=== PATIENT | female | born 1985 | race American Indian/Alaskan Native ===

== ENCOUNTER 2017-12-04 13:01 | Emergency (ER) | payer OTHER ==
[2017-12-04 15:38] VITALS: BP 142/93
[2017-12-04] MEDS ORDERED: LIDOCAINE VISCOUS 2% PO ONE (21:42)
[2017-12-04] MEDS ORDERED: XYLOCAINE 1% MPF 5 mL INFILTRATI ONE (21:42)
[2017-12-04] MEDS ORDERED: ROCEPHIN IM ONE (21:42)
--- NOTE | 2017-12-04 22:10 | Emergency Department Report ---
ED ENT HPI - General Chief complaint: Sore Throat Stated complaint: SORETHROAT, FEVER Time Seen by Provider: 12/04/17 21:41 Source: patient Mode of arrival: Ambulatory Limitations: No Limitations - History of Present Illness Initial comments: This is a 32-year-old female nontoxic, well nourished in appearance, no acute signs of distress presents to the ED with c/o of sore throat x4 days. He stated yesterday she developed subjective fever and hoarseness. Patient currently denies any fever. She just felt hot yesterday. Patient denied any chest pain, shortness of breath, fever, chills, nausea, drooling, difficulty swallowing, vomiting, headache, stiff neck, numbness tingling. Patient denies any allergies. Past medical history is hypertension. MD complaint: sore throat -: days(s) (4) Location: throat Severity: mild Severity scale (0 -10): 8 Quality: aching Consistency: constant Improves with: none Worsens with: swallowing Associated Symptoms: pain with swallowing. denies: fever, cough, gum swelling, toothache, sore throat, tinnitus, hearing loss, discharge from ear, rhinorrhea - Related Data Previous Rx's Medication Instructions Recorded Last Taken Type Amoxicillin/K Clav Tab [Augmentin 1 tab PO Q12HR #20 tab 12/04/17 Unknown Rx 875 mg] Nystas/Diphen/Xyl Visc/Mylanta 30 ml MM Q4H PRN 10 Days ml 12/04/17 Unknown Rx [Magic Mouthwash] Allergies Allergy/AdvReac Type Severity Reaction Status Date / Time No Known Allergies Allergy Unverified 12/04/17 15:34 ED Dental HPI - General Chief complaint: Sore Throat Stated complaint: SORETHROAT, FEVER Time Seen by Provider: 12/04/17 21:41 Source: patient Mode of arrival: Ambulatory Limitations: No Limitations - Related Data Previous Rx's Medication Instructions Recorded Last Taken Type Amoxicillin/K Clav Tab [Augmentin 1 tab PO Q12HR #20 tab 12/04/17 Unknown Rx 875 mg] Nystas/Diphen/Xyl Visc/Mylanta 30 ml MM Q4H PRN 10 Days ml 12/04/17 Unknown Rx [Magic Mouthwash] Allergies Allergy/AdvReac Type Severity Reaction Status Date / Time No Known Allergies Allergy Unverified 12/04/17 15:34 ED Review of Systems ROS: Stated complaint: SORETHROAT, FEVER Other details as noted in HPI Constitutional: denies: chills, fever Eyes: denies: eye pain, eye discharge, vision change ENT: throat pain. denies: ear pain Respiratory: denies: cough, shortness of breath, wheezing Cardiovascular: denies: chest pain, palpitations Endocrine: no symptoms reported Gastrointestinal: denies: abdominal pain, nausea, diarrhea Genitourinary: denies: urgency, dysuria, discharge Musculoskeletal: denies: back pain, joint swelling, arthralgia Skin: denies: rash, lesions Neurological: denies: headache, weakness, paresthesias Psychiatric: denies: anxiety, depression Hematological/Lymphatic: denies: easy bleeding, easy bruising ED Past Medical Hx - Past Medical History Hx Hypertension: Yes Additional medical history: heart mumur - Surgical History Past Surgical History?: No - Medications Home Medications: Home Medications Medication Instructions Recorded Confirmed Last Taken Type Amoxicillin/K Clav Tab [Augmentin 1 tab PO Q12HR #20 tab 12/04/17 Unknown Rx 875 mg] Nystas/Diphen/Xyl Visc/Mylanta 30 ml MM Q4H PRN 10 Days ml 12/04/17 Unknown Rx [Magic Mouthwash] ED Physical Exam - General Limitations: No Limitations General appearance: alert, in no apparent distress - Head Head exam: Present: atraumatic, normocephalic, normal inspection - Eye Eye exam: Present: normal appearance, PERRL, EOMI. Absent: scleral icterus, conjunctival injection, nystagmus, periorbital swelling, periorbital tenderness Pupils: Present: normal accommodation - ENT ENT exam: Present: mucous membranes moist, TM's normal bilaterally, normal external ear exam - Expanded ENT Exam Expanded Ear exam: Present: normal external inspection Mouth exam: Present: normal external inspection, tongue normal. Absent: drooling, trismus, muffled voice, tongue elevation, laceration Teeth exam: Present: normal inspection Throat exam: Positive: tonsillar erythema, tonsillomegaly (2+), tonsillar exudate, other (Uvula midline. No abscess or swelling noted. ). Negative: R peritonsillar mass, L peritonsillar mass - Neck Neck exam: Present: normal inspection, full ROM. Absent: tenderness, meningismus, lymphadenopathy, thyromegaly - Respiratory Respiratory exam: Present: normal lung sounds bilaterally. Absent: respiratory distress, wheezes, rales, rhonchi, stridor, chest wall tenderness, accessory muscle use, decreased breath sounds, prolonged expiratory - Cardiovascular Cardiovascular Exam: Present: regular rate, normal rhythm, normal heart sounds. Absent: bradycardia, tachycardia, irregular rhythm, systolic murmur, diastolic murmur, rubs, gallop - GI/Abdominal GI/Abdominal exam: Present: soft, normal bowel sounds. Absent: distended, tenderness, guarding, rebound, rigid, diminished bowel sounds - Rectal Rectal exam: Present: deferred - Extremities Exam Extremities exam: Present: normal inspection, full ROM, normal capillary refill. Absent: tenderness, pedal edema, joint swelling, calf tenderness - Back Exam Back exam: Present: normal inspection, full ROM. Absent: tenderness, CVA tenderness (R), CVA tenderness (L), muscle spasm, paraspinal tenderness, vertebral tenderness, rash noted - Neurological Exam Neurological exam: Present: alert, oriented X3, CN II-XII intact, normal gait, reflexes normal - Psychiatric Psychiatric exam: Present: normal affect, normal mood - Skin Skin exam: Present: warm, dry, intact, normal color. Absent: rash ED Course Vital Signs 12/04/17 15:34 Temperature 98.3 F Pulse Rate 80 Respiratory 18 Rate Blood Pressure 142/93 O2 Sat by Pulse 100 Oximetry - Reevaluation(s) Reevaluation #1: 12/04/17 22:12 Patient is speaking in full sentences with no signs of distress noted. ED Medical Decision Making - Medical Decision Making This is a 32-year-old female that presents with tonsillitis exudative. Patient stable and was examined by me. Upon examination there is no tonsillar abscess. This patient stated his symptoms are worsening and patient developed hoarseness patient received 1 g of Rocephin and 10 of Decadron. Patient vital signs are stable. Patient discharged with the end and Magic mouthwash. Patient is able to have a normal by mouth challenge. Patient was instructed Follow-up with a primary care doctor in 3-5 days or if symptoms worsen and continue return to emergency room as soon as possible. At time time of discharge, the patient does not seem toxic or ill in appearance. No acute signs of distress noted. Patient agrees to discharge treatment plan of care. No further questions noted by the patient. Critical care attestation.: If time is entered above; I have spent that time in minutes in the direct care of this critically ill patient, excluding procedure time. ED Disposition Clinical Impression: Tonsillitis with exudate Disposition: TO HOME OR SELFCARE Is pt being admited?: No Does the pt Need Aspirin: No Condition: Stable Instructions: Tonsillitis (ED), Amoxicillin/Clavulanate Potassium (By mouth) Additional Instructions: Follow-up with a primary care doctor in 3-5 days or if symptoms worsen and continue return to emergency room as soon as possible. Prescriptions: Amoxicillin/K Clav Tab [Augmentin 875 mg] 1 tab PO Q12HR #20 tab Nystas/Diphen/Xyl Visc/Mylanta [Magic Mouthwash] 30 ml MM Q4H PRN 10 Days ml PRN Reason: Sore Throat Referrals: JOHNATHAN SCOTT MD [Primary Care Provider] - 3-5 Days PRIMARY CARE, [Referring] - 3-[address] [facility] [place] [Outside] - 3-5 Days [facility] [Outside] - 3-5 Days Forms: Work/School Release Form(ED)
[2017-12-04] MEDS ORDERED: DECADRON IM ONE (22:13)
== END 2017-12-04 22:30 | disposition home or self-care (01) ==
LOC: ED 13:01
DX: J03.90 Acute tonsillitis, unspecified (principal); I10 Essential (primary) hypertension
CPT/HCPCS: 96372; 99282; J0696; J1100